=== PATIENT | female | born 1965 | race Caucasian/White ===

== ENCOUNTER 2016-12-05 21:58 | Observation (INO) ==
[2016-12-05] MEDS ORDERED: Ipratropium/Albuterol Neb 3 ML IH ONE (22:16)
--- NOTE | 2016-12-05 22:20 | Emergency Department Note ---
Disposition Clinical Impression: Acute exacerbation of chronic obstructive airways disease, Febrile illness Disposition: Admitted As Inpatient Condition: Fair Referrals: Jumana Harrison CNP [Primary Care Provider] - Forms: ED Satisfaction Letter Time of Disposition: 00:26 ([facility]) SOB HPI - General Chief Complaint: ED Shortness of Breath/Dyspnea Stated Complaint: shortness of breath Time Seen by Provider: 12/05/16 22:10 Source: patient, EMS Mode of arrival: ambulatory Limitations: no limitations Nursing Notes Reviewed: Yes Vital Signs Reviewed: Yes - History of Present Illness Pt Subjective Complaint: shortness of breath, cough Onset (ago): day(s) (2) Context: recent illness, occurred during exertion Severity: moderate Consistency/Duration: constant, gradually worsening Improves with: oxygen Worsens with: exertion, movement, inspiration Known history of: COPD, asthma Associated symptoms: Reports: fever, wheezing, sputum production, diaphoresis. Denies: chest pain, pain with inspiration, cough, orthopnea, lower extremity pain, polyuria, polydipsia, parasthesias, palpitations, hemoptysis, nausea/ vomiting, syncope, abdominal pain, rash, sense of impending doom Treatment prior to arrival: oxygen, bronchodilator Cough present: Yes Cough Description: Involuntary, Non-Productive, Bronchospastic Cough Frequency: Intermittent Sputum production: No - Related Data Home Medications Medication Instructions Recorded Confirmed Albuterol Neb [Proventil Neb] 2.5 mg IH Q4HR PRN 12/05/16 12/05/16 Albuterol Sulfate [Proair Hfa] 2 puff IH Q4H 12/05/16 12/05/16 Fluticasone/Vilanterol [Breo 1 each IH DAILY 12/05/16 12/05/16 Ellipta 200-25 Mcg INH] Lisinopril [Zestril] 10 mg PO DAILY 12/05/16 12/05/16 Allergies Allergy/AdvReac Type Severity Reaction Status Date / Time No Known Allergies Allergy Verified 12/05/16 22:00 All systems ED: reviewed and negative except as stated. Constitutional: Reports: fever, chills, weakness Eyes: Denies: eye pain, eye discharge ENT ED: Reports: congestion. Denies: ear pain, throat pain Cardiovascular: Reports: dyspnea on exertion. Denies: chest pain, palpitations Respiratory: Reports: cough, dyspnea, wheezes, sputum production Gastrointestinal: Reports: nausea. Denies: abdominal pain, vomiting Genitourinary: Denies: urgency, dysuria, frequency Musculoskeletal: Denies: back pain, neck pain, joint swelling Integumentary: Denies: rash, abrasion, lesions Neurological: Denies: headache, weakness, numbness Psychiatric: Denies: anxiety, depression Endocrine: Denies: fatigue Hematological/Lymphatic: Denies: easy bleeding, easy bruising Allergic/Immunologic: Denies: facial swelling Past Medical History - Past Medical History Attestation: Yes The following information was validated with the patient. Source: patient, old records reviewed, nursing notes reviewed Medical history: Reports: COPD, hypertension Psychiatric history: Reports: no psych history - Social History Smoking Status: Current every day smoker Smokeless Tobacco Status: No Alcohol use: Reports: none Drug use: Reports: none Physical Exam - General Limitations: no limitations General appearance: alert, anxious, in distress - Head Head exam: atraumatic, normocephalic, normal inspection - Eye Eye exam: Present: normal appearance, PERRL, EOMI - ENT ENT exam: normal exam, normal oropharynx, mucous membranes moist, normal external ear exam - Neck Neck exam: Present: normal inspection, full ROM, trachea midline - Chest Chest inspection: Present: normal inspection, symmetric chest wall rise - Respiratory Respiratory exam: Present: wheezes, accessory muscle use, prolonged expiratory phase - Cardiovascular Cardiovascular exam: Present: tachycardia, normal heart sounds - Abdominal Exam Abdominal exam: Present: soft, Non-Tender, normal bowel sounds. Absent: mass, pulsatile mass - Extremities Exam Extremities exam: Present: normal inspection, full ROM, normal capillary refill. Absent: tenderness, joint swelling - Expanded Lower Extremity Exam Neurovascular/Tendon exam: Present: normal capillary refill, normal fine/light touch Gait: observed and normal - Back Exam Back exam: Present: normal inspection, full ROM. Absent: muscle spasm - Neurological Exam Neurological exam: Present: alert, oriented X3, CN II-XII intact, normal gait - Psychiatric Psychiatric exam: Present: normal affect, normal mood - Skin Skin exam: Present: warm, dry, intact, normal color Course Course Narrative: Patient comes in with respiratory distress tachycardic tachypneic patient was given aerosol treatments which did seem to help ease the cycle to the point where she was able to go from a tripod position to lying down she was given antibiotics and steroids patient was admitted for observation transferred to [facility] improved fact viral illness possibly underlying pneumonia though the chest x-ray systems negative Vital Signs Temperature 101.8 F H 12/05/16 22:00 Pulse Rate 106 12/05/16 22:00 Respiratory Rate 25 12/05/16 22:00 Blood Pressure 117/56 12/05/16 22:00 O2 Sat by Pulse Oximetry 97 12/05/16 22:00 Temperature 101.8 F H 12/05/16 22:00 Pulse Rate 106 12/05/16 22:00 Respiratory Rate 18 12/05/16 22:26 Blood Pressure 117/56 12/05/16 22:00 O2 Sat by Pulse Oximetry 97 12/05/16 22:26 Oxygen Delivery Oxygen Delivery Room Air Shortness of Breath/Dyspnea - Differential Diagnosis Likely: acute exacerbation of chronic obstructive airways disease, pneumonia - Medical Records Medical records reviewed: Yes I reviewed the patient's medical records. - Lab Data Lab results reviewed: Yes I reviewed the patient's lab results. Result diagrams: 12/05/16 23:02 Lab Results 12/05/16 12/05/16 Range/Units 23:02 23:02 WBC 7.7 (4.3-11.1) K/mcL RBC 4.46 (3.82-4.97) M/mcL Hgb 13.2 (11.5-15.4) g/dL Hct 38.5 (35.3-44.9) % MCV 86.3 (83.0-100.0) fL MCH 29.6 (28.0-33.3) pg MCHC 34.3 (31.6-35.5) g/dL RDW 12.8 (11.5-14.5) % Plt Count 313 (140-400) K/mcL MPV 10.0 (9.4-12.4) fL Immature Gran % 0.5 (0-4) % Seg Neutrophils % 80.1 % Lymphocytes % 12.9 % Monocytes % 5.6 % Eosinophils % 0.6 % Basophils % 0.3 % Neutrophils # 6.2 (1.6-8.9) K/mcL Lymphocytes # 1.0 (0.6-4.6) K/mcL Monocytes # 0.4 (0.0-1.3) K/mcL Eosinophils # 0.1 (0.0-0.6) K/mcL Basophils # 0.0 (0.0-0.2) K/mcL PT 12.7 H (9.4-12.1) Seconds INR 1.2 APTT 35.1 (26.0-36.0) Seconds - Radiology Data Radiology results reviewed: Yes I reviewed the patient's radiology results. ITS Impressions Chest X-Ray 12/05/16 22:19 IMPRESSION: No acute cardiopulmonary abnormality. D/ / Edwardo Frazier MD / Edwardo Frazier MD Interpreting Provider: Edwardo rFazier MD - EKG Data EKG attestation: Yes I reviewed and interpreted this EKG. EKG results narrative: Sinus tach rate 113 MO 128 QRS 98 QT 320 axis XXV Critical Care Time Critical Care Time: No
[2016-12-05 23:18] LABS: Basophils % 0.3 %; Eosinophils # 0.1 K/mcL (0.0-0.6); Eosinophils % 0.6 %; Hematocrit 38.5 % (35.3-44.9); Hemoglobin 13.2 g/dL (11.5-15.4); Immature Granulocytes % 0.5 % (0-4); Lymphocytes % 12.9 %; Mean Corpuscular HGB Conc 34.3 g/dL (31.6-35.5); Mean Corpuscular Hemoglobin 29.6 pg (28.0-33.3); Mean Corpuscular Volume 86.3 fL (83.0-100.0); Monocytes # 0.4 K/mcL (0.0-1.3); Monocytes % 5.6 %; Neutrophils # 6.2 K/mcL (1.6-8.9); Platelet Count 313 K/mcL (140-400); Red Blood Count 4.46 M/mcL (3.82-4.97); Red Cell Distribution Width 12.8 % (11.5-14.5); Segmented Neutrophils % 80.1 %
[2016-12-05 23:32] LABS: INR 1.2; Prothrombin Time 12.7 Seconds (9.4-12.1)
[2016-12-05 23:34] LABS: Activated Partial Thrombo Time 35.1 Seconds (26.0-36.0)
[2016-12-05] MEDS ORDERED: CefTRIAXone 1,000 MG in D5% in Water (Mini-Bag+) 100 ML IVPB STA (23:37)
[2016-12-05] MEDS ORDERED: Azithromycin 500 MG in D5% in Water 250 ML IVPB ONE (23:37)
[2016-12-05 23:41] LABS: BUN/Creatinine Ratio 16 (6-26); Blood Urea Nitrogen 13 mg/dL (7-20); Calcium 8.6 mg/dL (8.6-10.8); Carbon Dioxide 21 mEq/L (19-29); Chloride 107 mEq/L (98-109); Glucose 119 mg/dL (70-99); Osmolality,Calculated 289 (280-300); Potassium 3.5 mEq/L (3.5-4.5); Sodium 139 mEq/L (136-145); eGFR For African Americans > 60 (> 60); eGFR For Non-African Americans > 60 (> 60)
[2016-12-05] MEDS ORDERED: 0.9 % Sodium Chloride 1,000 ML IVC SCH (23:45)
[2016-12-06] MEDS ORDERED: Naloxone 0.4 MG/ML INJ IVP PRN (01:10)
[2016-12-06] MEDS ORDERED: 0.9 % Sodium Chloride 1,000 ML IVC SCH (01:10)
[2016-12-06] MEDS: Ipratropium/Albuterol Neb 3 ML IH SCH ×2 (05:13→11:52)
[2016-12-06 06:09] LABS: Basophils % 0.1 %; Hematocrit 40.5 % (35.3-44.9); Hemoglobin 13.5 g/dL (11.5-15.4); Immature Granulocytes % 0.4 % (0-4); Lymphocytes # 0.5 K/mcL (0.6-4.6); Lymphocytes % 7.3 %; Mean Corpuscular HGB Conc 33.3 g/dL (31.6-35.5); Mean Corpuscular Hemoglobin 29.2 pg (28.0-33.3); Mean Corpuscular Volume 87.5 fL (83.0-100.0); Mean Platelet Volume 10.4 fL (9.4-12.4); Monocytes # 0.1 K/mcL (0.0-1.3); Monocytes % 1.4 %; Neutrophils # 6.7 K/mcL (1.6-8.9); Platelet Count 324 K/mcL (140-400); Red Blood Count 4.63 M/mcL (3.82-4.97); Segmented Neutrophils % 90.8 %
[2016-12-06 06:25] LABS: BUN/Creatinine Ratio 14 (6-26); Blood Urea Nitrogen 11 mg/dL (7-20); Calcium 8.8 mg/dL (8.6-10.8); Carbon Dioxide 22 mEq/L (19-29); Chloride 110 mEq/L (98-109); Glucose 137 mg/dL (70-99); Osmolality,Calculated 298 (280-300); Phosphorous 3.1 mg/dL (2.3-4.7); Sodium 143 mEq/L (136-145); eGFR For African Americans > 60 (> 60); eGFR For Non-African Americans > 60 (> 60)
[2016-12-06 07:44] LABS: Bilirubin,Urine Negative (Negative); Blood,Urine Trace-intact (Negative); Clarity,Urine Clear (Clear); Color,Urine Yellow (Yellow); Glucose,Urine (UA) Normal (Normal); Ketones,Urine Negative (Negative); Leukocyte Esterase,Urine Negative (Negative); Nitrite,Urine Negative (Negative); Protein,Urine Negative (Neg-Trace); Specific Gravity,Urine 1.015 (1.010-1.025); Urobilinogen,Urine Normal (Normal)
[2016-12-06 07:54] LABS: RBC,Urine 0-3 per hpf (0-3)
[2016-12-06 07:55] LABS: Mucus,Urine Few (Few); Squamous Epithelial Cell,Urine Few per lpf (None-Few); WBC,Urine 0-3 per hpf (0-3)
[2016-12-06] MEDS: CefTRIAXone 1,000 MG in D5% in Water (Mini-Bag+) 100 ML IVPB SCH (08:04)
[2016-12-06] MEDS ORDERED: Azithromycin 500 MG in D5% in Water 250 ML IVPB SCH ×2 (09:00→18:00)
--- NOTE | 2016-12-06 09:18 | Electrocardiograph Report ---
[place] [address] Test Date: 2016-12-05 Pat Name: Chanel Okeefe Department: [id number] Room: [facility] Gender: F [employer] Maker: [id number] 1965 Requested By: Karena Olea Order Number: [id number] Reading MD: Delon Evans MD Measurements Intervals [place] Rate: 113 P: 62 MT: 128 QRS: 25 QRSD: 98 T: 61 QT: 320 QTc: 387 Interpretive Statements SINUS TACHYCARDIA INCOMPLETE RIGHT BUNDLE BRANCH BLOCK Electronically Signed On 12-06-2016 9:17:19 EDT by Delon Evans MD
[2016-12-06] MEDS: (Breo Ellipta 200-25 Mcg Inh) IH SCH (11:52)
--- NOTE | 2016-12-06 11:53 | Internal Med History&Physical ---
Date of Encounter: 12/06/16 Time of Encounter: 11:25 Assessment and Plan (1) Acute exacerbation of chronic obstructive airways disease Current visit: Yes Status: Acute She has been started on Rocephin and Zithromax. I told her she probably had viral bronchitis. We will continue present treatment. Anticipate discharge home tomorrow. Will check room air oximetry prior to discharge. (2) Hypertension Current visit: Yes Status: Chronic We will hold lisinopril since blood pressure is borderline low. Qualifiers: Hypertension type: essential hypertension Qualified Code(s): I10 - Essential (primary) hypertension Internal Medicine - H&P: HPI Chief complaint: Dyspnea Admitted From: Home Plans for Post Hospital Care: Home History of present illness: Ms. Okeefe is a 51 year old female who came to emergency room complaining of increasing dyspnea over the past 2 days. She had a cough with little to no productivity. Her symptoms worsened despite use of albuterol nebulizer treatments at home. She felt she was having fevers and chills. She came to emergency room and was evaluated. She had negative testing for influenza but was felt to have exacerbation of COPD and was admitted to [facility] floor for ongoing care needs. Respiratory history significant for having smoked since age 15 up to 2 packs per day. She quit for a 3 month period last year. She follows with a wood products manufacturer and had recent PFTs which confirmed previous diagnosis of asthma and showed possible COPD. She does not wear home oxygen at this time. She has also been tested for NÉSTOR and was told she needed to have additional testing done. She has not been prescribed CPAP/BiPAP yet. She states her breathing has improved since admission but she does not feel back to her baseline yet. Past Med Surg Social Fam HX - Past Medical History Medical history: COPD, hypertension Psychiatric history: no psych history - Social History Smoking Status: Current every day smoker Packs per day: 1 Smokeless Tobacco Status: No Alcohol use: none Drug use: none - Family History Sister Hx Family Respiratory Disorders: Yes (COPD) Mother Living Status: Hx Family Cancer: Yes (leukemia) Father Living Status: Hx Family Cancer: Yes (esophageal) Internal Medicine - H&P: Meds Albuterol Neb [Proventil Neb] 2.5 mg IH Q4HR PRN 12/05/16 [History] Albuterol Sulfate [Proair Hfa] 2 puff IH Q4H 12/05/16 [History] Fluticasone/Vilanterol [Breo Ellipta 200-25 Mcg INH] 1 each IH DAILY 12/05/16 [ History] Lisinopril [Zestril] 10 mg PO DAILY 12/05/16 [History] Allergies No Known Allergies Allergy (Verified 12/05/16 22:00) All Systems PM: A 10-system review of systems was performed and is negative for pertinent findings except as documented above in the HPI. Review of systems: Gen.: She states her weight has been stable the past few months Cardiovascular: She has history of hypertension but denies NE heart failure angina DVT or pulmonary embolus Respiratory: As per history of present illness GI: She denies disorders of her liver gallbladder or exocrine pancreas : She denies hematuria dysuria or kidney stones Neurologic: She denies large distribution strokes or seizures Endocrine: She denies diabetes thyroid disease or hyperlipidemia Hematology/oncology: She denies blood disorders cancers or anemia Psychiatric: She denies anxiety depression or other mental health issues [place] skeletal: She denies arthritis gout or other bone joint or muscle disorders. - Constitutional Vitals: Temp Pulse Resp BP Pulse Ox 98.3 F 90 19 109/69 94 12/06/16 11:14 12/06/16 11:14 12/06/16 11:14 12/06/16 11:14 12/06/16 11:14 Exam: Gen.: She is a well-developed well-nourished female who appears in no severe distress at present time HEENT: Head is atraumatic and normal cephalic. Eyes: EOMI. There is no scleral icterus. Mouth: Mucosa is moist. Neck: Supple and nontender. There is no thyromegaly or adenopathy noted. Heart: Regular without murmurs gallops or ectopics. Lungs: No wheezes or crackles are heard. She does get dyspneic on talking Abdomen: Soft and nontender. No masses or guarding are noted. Extremities: There is no cyanosis edema or clubbing noted. Dorsalis pedis and posttibial pulses 1-2 over 2 bilaterally. Neurologic: Mental status: She is talkative and a good historian. Cranial nerves: Smile is symmetric. Forehead wrinkles bilaterally. Tongue protrudes midline. EOMI. Motor: There is no pronator drift. Cerebellar: Finger to nose is intact bilaterally. Skin: Warm and dry Internal Med - H&P Results - Labs CBC & Chem 7: 12/06/16 04:36 12/06/16 04:36 Labs: Short CBC 12/06/16 Range/Units 04:36 WBC 7.4 (4.3-11.1) K/mcL Hgb 13.5 (11.5-15.4) g/dL Hct 40.5 (35.3-44.9) % Plt Count 324 (140-400) K/mcL Neutrophils # 6.7 (1.6-8.9) K/mcL BMP 12/06/16 04:36 Sodium 143 Potassium 4.0 Chloride 110 H Carbon Dioxide 22 BUN 11 Creatinine 0.77 Glucose 137 H Calcium 8.8
[2016-12-06] MEDS ORDERED: Benzonatate 100 MG CAPSULE PO PRN (11:58)
[2016-12-06] MEDS: Tiotropium 18 MCG inhalation IH SCH (12:48)
[2016-12-06] MEDS: Budesonide/Formoterol 160/4.5 MDI IH SCH ×2 (12:49→20:50)
[2016-12-06] MEDS: Albuterol 2.5 MG/3 ML NEBULIZER IH PRN ×2 (17:43→20:46)
[2016-12-06] MEDS: PredniSONE 10 MG TABLET PO SCH (18:24)
[2016-12-06] MEDS: Nicotine 14 MG PATCH.TD24 TD SCH (18:32)
[2016-12-07] MEDS: Albuterol 2.5 MG/3 ML NEBULIZER IH PRN ×2 (03:33→08:18)
[2016-12-07 06:43] LABS: Basophils % 0.1 %; Hemoglobin 12.7 g/dL (11.5-15.4); Immature Granulocytes % 0.9 % (0-4); Lymphocytes # 1.3 K/mcL (0.6-4.6); Lymphocytes % 8.2 %; Mean Corpuscular HGB Conc 33.4 g/dL (31.6-35.5); Mean Corpuscular Hemoglobin 29.3 pg (28.0-33.3); Mean Corpuscular Volume 87.6 fL (83.0-100.0); Mean Platelet Volume 10.4 fL (9.4-12.4); Monocytes # 1.1 K/mcL (0.0-1.3); Neutrophils # 13.5 K/mcL (1.6-8.9); Platelet Count 327 K/mcL (140-400); Red Blood Count 4.34 M/mcL (3.82-4.97); Red Cell Distribution Width 13.3 % (11.5-14.5); Segmented Neutrophils % 83.8 %
[2016-12-07] MEDS: PredniSONE 10 MG TABLET PO SCH (08:19)
[2016-12-07] MEDS: Nicotine 14 MG PATCH.TD24 TD SCH (08:20)
[2016-12-07] MEDS: CefTRIAXone 1,000 MG in D5% in Water (Mini-Bag+) 100 ML IVPB SCH (08:22)
[2016-12-07] MEDS: (Breo Ellipta 200-25 Mcg Inh) IH SCH (08:28)
[2016-12-07 10:00] VITALS: BP 125/77
--- NOTE | 2016-12-07 10:29 | Discharge Summary ---
Date of Encounter: 12/07/16 Time of Encounter: 10:20 - Discharge Diagnosis (1) Acute exacerbation of chronic obstructive airways disease Priority: Primary Status: Acute (2) Hypertension Priority: Secondary Status: Chronic Qualifiers: Hypertension type: essential hypertension Qualified Code(s): I10 - Essential (primary) hypertension - Discharge Medications Prescriptions: Benzonatate [Tessalon] 100 mg PO TID PRN #10 capsule PRN Reason: Cough PredniSONE 10 mg PO BIDWM #6 tablet Home Medications: Albuterol Neb [Proventil Neb] 2.5 mg IH Q4HR PRN 12/05/16 [History] Albuterol Sulfate [Proair Hfa] 2 puff IH Q4H 12/05/16 [History] Fluticasone/Vilanterol [Breo Ellipta 200-25 Mcg INH] 1 each IH DAILY 12/05/16 [ History] Benzonatate [Tessalon] 100 mg PO TID PRN #10 capsule 12/07/16 [Rx] PredniSONE 10 mg PO BIDWM #6 tablet 12/07/16 [Rx] Allergies/Adverse Reactions: Allergies No Known Allergies Allergy (Verified 12/05/16 22:00) Date of admission: 12/06/16 01:09 Primary care physician: Jumana Harrison CNP - Patient Status Disposition: Home, Self-Care Condition: Fair Functional capacity at discharge: independent ambulation Overall status at discharge: patient is progressing back to baseline - Discharge Instructions Follow Up With: Jumana Harrison CNP [Primary Care Provider] - 1 week - Diet and Activity Activity: resume usual activities as tolerated Diet: advance to your usual diet Hospital course: Ms. Okeefe is a 51 year old female who came to emergency room complaining of increasing dyspnea over the past 2 days. She had a cough with little to no productivity. Her symptoms worsened despite use of albuterol nebulizer treatments at home. She felt she was having fevers and chills. She came to emergency room and was evaluated. She had negative testing for influenza but was felt to have exacerbation of COPD and was admitted to [facility] floor for ongoing care needs. Initial orders were written by the emergency room physician. I saw her on December 06 and performed the history and physical. Rocephin and Zithromax were started through emergency room. I felt she likely had viral bronchitis and will not continue antibiotics at discharge. She will continue with Tessalon Perles and OTC Robitussin for her nonproductive cough. Lisinopril was held because of underlying hypotension. Her PCP can monitor blood pressure and restarted if needed. There were no new problems and on December 07 I felt she was stable for discharge home. I explained to her she was still contagious and should keep appropriate distance from contacts. She will return to work December 14. She will follow with her PCP Jumana Harrison CNP within 1 week. Room air oximetry will be checked prior to discharge. - Time Spent with Patient Total time spent providing and/or coordinating discharge services: - Constitutional Vitals: Temp Pulse Resp BP Pulse Ox 98.2 F 112 24 125/77 94 12/07/16 09:58 12/07/16 09:58 12/07/16 09:58 12/07/16 09:58 12/07/16 09:58
[2016-12-07] MEDS: Tiotropium 18 MCG inhalation IH SCH (11:17)
[2016-12-07] MEDS: Budesonide/Formoterol 160/4.5 MDI IH SCH (11:17)
== END 2016-12-07 12:00 | disposition home or self-care (01) ==
LOC: INPPIK 21:58 → EMEROOPIK 21:58 → INPPIK 12-06 01:30
PROVIDERS: ADMIT Internal Medicine; ATTEND Internal Medicine